=== PATIENT | male | born 1935 | race Caucasian/White ===

== ENCOUNTER 2018-08-13 17:51 | Emergency (ER) | payer OTHER ==
[~2018-08-13] VITALS: Ht 172.7 cm; Wt 85.3 kg
[~2018-08-13 17:51] MED LIST: ALTACE2.5 M1; ASA81 MG; AZITHROMYCIN500 MG PO; CONEX TABLET1 EACH PO; COQ-1030 MG; CRESTOR40 MG; DEPO-MEDROL40 MG/ML IM; DOLOGESIC 500-1 EACH PO; DOLOGESIC CAPLE1 TAB PO; ENTRESTO 24 MG1 EACH; FLORASTOR250 MG; FOLIC ACID0.4 MG; IMDUR30 MG; ISOSORBIDE DINI30 MG; LASIX40 MG; LEVAQUIN500 MG PO; LOPRESSOR25 MG; MAGNESIUM400 MG; MUPIROCIN22 GM TOP; NABUMETONE500 MG PO; NORFLEX100MG PO; PEPCID20 MG; PLAVIX75 MG; RANEXA500 MG; TIZANIDINE HCL2 MG PO; TOPROL XL100 M1; TOPROL XL50 MG; TUSSIONEX PENNKI5 ML PO; XYLOCAINE-MP10 MG/ML IM; ZANAFLEX4 MG PO
== END 2018-08-13 23:28 | disposition home or self-care (01) ==
LOC: ER 17:51
DX: J11.1 Influenza due to unidentified influenza virus with other respiratory manifestations (principal); R51 Headache; E86.0 Dehydration

== ENCOUNTER 2020-03-16 14:42 | Outpatient (CLI) | payer OTHER | END 2020-03-16 14:43 | disposition home or self-care (01) | LOC: SONOGRAMA 14:42 | PROVIDERS: ATTEND Urology | DX: N40.0 Benign prostatic hyperplasia without lower urinary tract symptoms (principal); R31.1 Benign essential microscopic hematuria ==

== ENCOUNTER 2020-10-12 11:02 | Outpatient (CLI) | payer OTHER | END 2020-10-12 11:10 | disposition home or self-care (01) | LOC: RAD 11:02 | PROVIDERS: ATTEND Orthopaedic Surgery | DX: M25.562 Pain in left knee (principal); M79.605 Pain in left leg ==

== ENCOUNTER 2020-12-03 13:59 | Outpatient (CLI) | payer OTHER | END 2020-12-03 14:17 | disposition home or self-care (01) | LOC: SONOGRAMA 13:59 → MAMO-SONO 14:45 | PROVIDERS: ATTEND Urology | DX: N40.0 Benign prostatic hyperplasia without lower urinary tract symptoms (principal); R31.1 Benign essential microscopic hematuria ==

== ENCOUNTER 2021-07-15 11:39 | Outpatient (CLI) | payer OTHER | END 2021-07-15 11:49 | disposition home or self-care (01) | LOC: TOM 11:39 | PROVIDERS: ATTEND Internal Medicine Sports Medicine | DX: K57.90 Diverticulosis of intestine, part unspecified, without perforation or abscess without bleeding (principal); K40.20 Bilateral inguinal hernia, without obstruction or gangrene, not specified as recurrent; R10.84 Generalized abdominal pain ==

== ENCOUNTER 2021-08-19 14:48 | Outpatient (CLI) | payer OTHER | END 2021-08-19 15:07 | disposition home or self-care (01) | LOC: SONOGRAMA 14:48 | PROVIDERS: ATTEND Urology | DX: N40.0 Benign prostatic hyperplasia without lower urinary tract symptoms (principal); R97.20 Elevated prostate specific antigen [PSA]; R33.8 Other retention of urine ==

== ENCOUNTER 2021-11-21 20:06 | Emergency (ER) | payer OTHER ==
[~2021-11-21] VITALS: Ht 175.3 cm; Wt 85.3 kg
== END 2021-11-21 21:35 | disposition home or self-care (01) ==
LOC: ER 20:06
DX: S01.82XA Laceration with foreign body of other part of head, initial encounter (principal); W18.30XA Fall on same level, unspecified, initial encounter; Y93.H2 Activity, gardening and landscaping; Y92.017 Garden or yard in single-family (private) house as the place of occurrence of the external cause; S61.421A Laceration with foreign body of right hand, initial encounter

== ENCOUNTER 2021-11-29 09:41 | Outpatient (CLI) | payer OTHER | END 2021-11-29 09:42 | disposition home or self-care (01) | LOC: NUCLEAR 09:41 | PROVIDERS: ATTEND Internal Medicine Sports Medicine | DX: R07.89 Other chest pain (principal); S22.41XA Multiple fractures of ribs, right side, initial encounter for closed fracture | CPT/HCPCS: 78306; A9503 ==

== ENCOUNTER 2021-12-02 16:27 | Emergency (ER) | payer OTHER ==
[~2021-12-02] VITALS: Ht 368.3 cm; Wt 75.3 kg
== END 2021-12-02 17:33 | disposition home or self-care (01) ==
LOC: ER 16:27
DX: Z48.02 Encounter for removal of sutures (principal)

== ENCOUNTER 2023-03-19 15:21 | Outpatient (CLI) | payer OTHER | END 2023-03-19 15:27 | disposition home or self-care (01) | LOC: RAD 15:21 | PROVIDERS: ATTEND Orthopaedic Surgery | DX: M25.562 Pain in left knee (principal); M54.59 Other low back pain ==

== ENCOUNTER 2023-09-02 08:12 | Outpatient (CLI) | payer OTHER | END 2023-09-02 08:14 | disposition home or self-care (01) | LOC: NUCLEAR 08:12 | PROVIDERS: ATTEND Internal Medicine Nephrology | DX: I70.223 Atherosclerosis of native arteries of extremities with rest pain, bilateral legs (principal); I87.2 Venous insufficiency (chronic) (peripheral) ==

== ENCOUNTER 2023-09-04 13:59 | Outpatient (CLI) | payer OTHER | END 2023-09-04 14:05 | disposition home or self-care (01) | LOC: RAD 13:59 | PROVIDERS: ATTEND Internal Medicine Nephrology | DX: M54.2 Cervicalgia (principal); M54.51 Vertebrogenic low back pain; R31.9 Hematuria, unspecified; N18.31 Chronic kidney disease, stage 3a ==

== ENCOUNTER 2024-02-19 08:49 | Outpatient (CLI) | payer OTHER | END 2024-02-19 09:20 | disposition home or self-care (01) | LOC: WOUND MED 08:49 | PROVIDERS: ATTEND Specialist | DX: L02.413 Cutaneous abscess of right upper limb (principal) | CPT/HCPCS: 11042; A4927; A6219; A6223 ==

== ENCOUNTER 2025-02-08 08:14 | Outpatient (CLI) | payer OTHER | END 2025-02-08 08:15 | disposition home or self-care (01) | LOC: NUCLEAR 08:14 | DX: I82.409 Acute embolism and thrombosis of unspecified deep veins of unspecified lower extremity (principal); I87.2 Venous insufficiency (chronic) (peripheral) ==

== ENCOUNTER 2025-02-13 14:36 | Emergency (ER) | payer OTHER ==
[~2025-02-13] VITALS: Ht 162.6 cm; Wt 87.1 kg
[2025-02-13] MEDS ORDERED: LASIX20 MG (14:51)
[2025-02-13] MEDS ORDERED: ONDANSETRON HCL 2 MG/ML VIAL ONE ×2 (15:29→15:30)
[2025-02-13] MEDS ORDERED: FAMOTIDINE/PF 20 MG/2 ML VIAL ONE (15:30)
[2025-02-13] MEDS ORDERED: 0.9 % SODIUM CHLORIDE 500 ML IV ONE (15:30)
[2025-02-13] MEDS ORDERED: ONDANSETRON HCL 2 MG/ML VIAL IV ONE (15:30)
[2025-02-13] MEDS ORDERED: FAMOTIDINE/PF 20 MG/2 ML VIAL IV ONE (15:30)
[2025-02-13 16:25] LABS: BASO % 0.8 % (0.1-1.2); EOS # 0.25 (0.04-0.54); EOS % 3.8 % (0.7-7.0); LYMPH # 2.36 (1.18-3.74); LYMPH % 35.9 % (19.3-53.1); MEAN PLATELET VOLUME 9.80 fl (9.4-12.4); MONO # 0.63 (0.24-0.82); MONO % 9.6 % (4.7-12.5); NEUT # 3.27 (1.56-6.13); NEUT % 49.7 % (34.0-71.1); RED CELL DISTRIBUTION WIDTH 13.6 % (11.6-14.4)
[2025-02-13 16:48] LABS: URINE APPEARANCE Clear; URINE BILIRRUBIN Negative (NEGATIVE); URINE BLOOD Negative; URINE COLOR Yellow; URINE GLUCOSE Negative (NEGATIVE); URINE KETONE Trace (NEGATIVE); URINE LEUKOCYTE Trace; URINE NITRATE Negative; URINE PROTEIN Trace (NEGATIVE); URINE UROBILINOGEN 1.0 E.U./dl
[2025-02-13 16:51] LABS: URINE BACTERIA 14.3 uL (0.0-1933); URINE CAST 3.07 uL (0.0-1.40); URINE EPITHELIAL CELLS 5.9 uL (0.0-38.8); URINE RBC 6.7 uL (0.0-20.8); URINE WBC 17.5 uL (0.0-23.2)
[2025-02-13 16:56] LABS: INR 1.12
[2025-02-13 16:57] LABS: COVID-19 AG NEGATIVE (NEGATIVE)
[2025-02-13 17:16] LABS: ALT/SGPT 13.0 U/L (12-78); AST/SGOT 29.0 U/L (15-37); BILIRUBIN TOTAL 0.79 mg/dL (0.3-1.2); BILIRUBIN,CONJUGATED 0.33 mg/dL (0.0-0.2); BUN CREA RATIO 7.0 (7.0-25.0); CREATININE SERUM 2.03 mg/dL (0.70-1.30); GFR 31.15; GLOBULINA 2.7 G/DL (2.4-3.5); GLUCOSE FASTING 102.0 mg/dL (65-100); OSMOLALITY SERUM 275.0 MOSM/KG (275-295)
[2025-02-13] MEDS ORDERED: PROTONIX20 MG PO (18:46)
[2025-02-13] MEDS ORDERED: CARAFATE1 GM/10 ML PO (18:46)
[2025-02-13] MEDS ORDERED: APETIGEN L790 MG/15 PO (18:46)
[2025-02-13] MEDS ORDERED: METHYLPREDNISOLONE SOD SUCC 125 MG VIAL IV ONE (19:15)
[2025-02-13] MEDS ORDERED: METOCLOPRAMIDE HCL 5 MG/ML VIAL IV ONE (19:15)
[2025-02-13] MEDS ORDERED: METOCLOPRAMIDE HCL 5 MG/ML VIAL ONE (19:44)
[2025-02-13] MEDS ORDERED: METHYLPREDNISOLONE SOD SUCC 125 MG VIAL ONE (19:44)
== END 2025-02-13 20:47 ==
LOC: ER 14:36
PROVIDERS: General Practice
DX: R53.1 Weakness (principal); N28.1 Cyst of kidney, acquired; K57.30 Diverticulosis of large intestine without perforation or abscess without bleeding; I70.8 Atherosclerosis of other arteries; I10 Essential (primary) hypertension; Z85.46 Personal history of malignant neoplasm of prostate; Z85.51 Personal history of malignant neoplasm of bladder; Z95.0 Presence of cardiac pacemaker; Z96.89 Presence of other specified functional implants; Z20.822 Contact with and (suspected) exposure to COVID-19
CPT/HCPCS: 36415; 70450; 71046; 74176; 93005; 96365; 96366; 99284; J2405; J2765; J3490